=== PATIENT | male | born 1990 | race Caucasian/White ===

== ENCOUNTER 2020-04-03 20:49 | Emergency (ER) | payer BC, OTHER ==
--- NOTE | 2020-04-03 21:50 | EDM.PDOC ---
ED HPI GENERAL MEDICAL PROBLEM - General Chief Complaint: Respiratory Problem Stated Complaint: [facility] Time Seen by Provider: 04/03/20 21:10 Source of Information: Reports: Patient History Limitations: Reports: No Limitations - History of Present Illness INITIAL COMMENTS - FREE TEXT/NARRATIVE: This is a 29-year-old male. He is been home for the last 10 days being COVID positive. He has been having cough and shortness of breath and diarrhea. He denies any significant sore throat no significant congestion. No nausea or vomiting. He has been having lots of fatigue as well. Due to his shortness of breath he comes to the ER. He states as long as he is lying down he is not short of breath but soon as he tries to move around he starts coughing and has paroxysms of coughing. This has concerned him and that is why he is here. He has not really been running any fever that he is noted. The patient is not drinking very many fluids as well and so he appears to be dehydrated. He is coughing up phlegm here in the ER. - Related Data Allergies Allergy/AdvReac Type Severity Reaction Status Date / Time No Known Allergies Allergy Verified 04/03/20 20:57 Home Meds: Home Meds guaiFENesin/Pseudoephedrine [Mucinex D ER 600-60 MG] 1 tab PO DAILY 04/03/20 [History] Codeine/guaiFENesin [Robitussin AC] 10 ml PO Q6H PRN #236 liquid 04/04/20 [Rx] Past Medical History - Infectious Disease History Infectious Disease History: Reports: Novel Coronavirus - Past Surgical History GI Surgical History: Reports: Hernia, Abdominal Social & Family History - Caffeine Use Caffeine Use: Reports: Coffee, Energy Drinks, Soda, Tea ED ROS GENERAL - Review of Systems Review Of Systems: See Below Constitutional: Reports: Fatigue. Denies: Fever, Chills HEENT: Denies: Sinus Problem, Throat Pain Respiratory: Reports: Shortness of Breath, Cough, Sputum Cardiovascular: Reports: No Symptoms Endocrine: Reports: Fatigue GI/Abdominal: Reports: Diarrhea. Denies: Abdominal Pain, Nausea, Vomiting : Reports: No Symptoms Musculoskeletal: Reports: No Symptoms Skin: Reports: No Symptoms Neurological: Reports: No Symptoms Psychiatric: Reports: No Symptoms Hematologic/Lymphatic: Reports: No Symptoms ED EXAM, GENERAL - Physical Exam Exam: See Below Exam Limited By: No Limitations General Appearance: Alert, WD/WN, No Apparent Distress, Other (He is in no distress when he is lying down, when he sits up he starts coughing and cannot seem to stop coughing) Eye Exam: Bilateral Eye: Normal Inspection Ears: Normal External Exam Nose: Normal Inspection Throat/Mouth: Normal Inspection, Normal Lips, Normal Voice, No Airway Compromise Head: Normocephalic Neck: Supple Respiratory/Chest: No Respiratory Distress, Other (Mild decreased breath sounds in the right base but no wheezing or crackles noted) Cardiovascular: Regular Rate, Rhythm, No Murmur, Tachycardia GI/Abdominal: Soft, Non-Tender Back Exam: Full Range of Motion Extremities: Normal Inspection, Normal Range of Motion Neurological: Alert, Oriented Psychiatric: Normal Affect, Normal Mood Skin Exam: Warm, Dry Course - Vital Signs Last Recorded V/S: Last Vital Signs Temp 97.3 F 04/03/20 20:52 Pulse 140 H 04/03/20 20:52 Resp 31 H 04/03/20 20:52 BP 129/84 04/03/20 20:52 Pulse Ox 93 L 04/03/20 20:52 - Orders/Labs/Meds Orders: Active Orders 24 hr Category Date Time Status Lactated Ringers [Ringers, Lactated] 1,000 ml Med 04/03/20 22:00 Active IV ASDIRECTED Medication Orders Lactated Ringer's (Ringers, Lactated) 1,000 mls @ 1,000 mls/hr IV ASDIRECTED IVETH Last Admin: 04/03/20 22:14 Dose: 1,000 mls/hr Documented by: RUBY Labs: Laboratory Tests 04/03/20 04/03/20 04/03/20 Range/Units 22:10 22:10 22:10 WBC 8.39 (4.23-9.07) K/mm3 RBC 5.14 (4.63-6.08) M/mm3 Hgb 14.3 (13.7-17.5) gm/dl Hct 42.2 (40.1-51.0) % MCV 82.1 (79.0-92.2) fl MCH 27.8 (25.7-32.2) pg MCHC 33.9 (32.2-35.5) g/dl RDW Std Deviation 40.6 (35.1-43.9) fL Plt Count 293 (163-337) K/mm3 MPV 8.8 L (9.4-12.3) fl Neut % (Auto) 83.3 H (34.0-67.9) % Lymph % (Auto) 12.0 L (21.8-53.1) % Canadian % (Auto) 4.4 L (5.3-12.2) % Eos % (Auto) 0 L (0.8-7.0) Baso % (Auto) 0.2 (0.1-1.2) % Neut # (Auto) 6.98 H (1.78-5.38) K/mm3 Lymph # (Auto) 1.01 L (1.32-3.57) K/mm3 Canadian # (Auto) 0.37 (0.30-0.82) K/mm3 Eos # (Auto) 0.00 L (0.04-0.54) K/mm3 Baso # (Auto) 0.02 (0.01-0.08) K/mm3 Manual Slide Review Normal smear D-Dimer, Quantitative 0.41 (0.19-0.50) mg/L Puncture Site ABG pH (7.35-7.45) ABG pCO2 (35.0-45.0) mmHg ABG pO2 (80.0-100.0) mmHg ABG HCO3 (22.0-26.0) meq/L ABG O2 Saturation (96.0-97.0) % ABG Base Excess (-2-2.0) Shady Test A-a Gradient mmHg O2 Delivery Device FiO2 (21.00-100.00) % Sodium 134 L (136-145) mEq/L Potassium 3.4 L (3.5-5.1) mEq/L Chloride 98 (98-107) mEq/L Carbon Dioxide 21 (21-32) mEq/L Anion Gap 18.4 H (5-15) BUN 18 (7-18) mg/dL Creatinine 1.2 (0.7-1.3) mg/dL Est Cr Clr Drug Dosing 95.00 mL/min Estimated GFR (MDRD) > 60 (>60) mL/min BUN/Creatinine Ratio 15.0 (14-18) Glucose 116 H (74-106) mg/dL Calcium 8.4 L (8.5-10.1) mg/dL Ferritin (26-388) ng/ml Total Bilirubin 0.6 (0.2-1.0) mg/dL AST 50 H (15-37) U/L ALT 49 (16-63) U/L Alkaline Phosphatase 49 (46-116) U/L Lactate Dehydrogenase 460 H (85-227) U/L Creatine Kinase 465 H (39-308) U/L C-Reactive Protein 18.0 H* (<1.0) mg/dL Total Protein 7.7 (6.4-8.2) g/dl Albumin 2.9 L (3.4-5.0) g/dl Globulin 4.8 gm/dL Albumin/Globulin Ratio 0.6 L (1-2) 04/03/20 04/03/20 Range/Units 22:10 22:35 WBC (4.23-9.07) K/mm3 RBC (4.63-6.08) M/mm3 Hgb (13.7-17.5) gm/dl Hct (40.1-51.0) % MCV (79.0-92.2) fl MCH (25.7-32.2) pg MCHC (32.2-35.5) g/dl RDW Std Deviation (35.1-43.9) fL Plt Count (163-337) K/mm3 MPV (9.4-12.3) fl Neut % (Auto) (34.0-67.9) % Lymph % (Auto) (21.8-53.1) % Canadian % (Auto) (5.3-12.2) % Eos % (Auto) (0.8-7.0) Baso % (Auto) (0.1-1.2) % Neut # (Auto) (1.78-5.38) K/mm3 Lymph # (Auto) (1.32-3.57) K/mm3 Canadian # (Auto) (0.30-0.82) K/mm3 Eos # (Auto) (0.04-0.54) K/mm3 Baso # (Auto) (0.01-0.08) K/mm3 Manual Slide Review D-Dimer, Quantitative (0.19-0.50) mg/L Puncture Site Rt radial ABG pH 7.44 (7.35-7.45) ABG pCO2 26.1 L (35.0-45.0) mmHg ABG pO2 61.0 L (80.0-100.0) mmHg ABG HCO3 17.6 L (22.0-26.0) meq/L ABG O2 Saturation 91.4 L (96.0-97.0) % ABG Base Excess -4.6 L (-2-2.0) Shady Test Positive A-a Gradient 56 mmHg O2 Delivery Device Room air FiO2 21.00 (21.00-100.00) % Sodium (136-145) mEq/L Potassium (3.5-5.1) mEq/L Chloride (98-107) mEq/L Carbon Dioxide (21-32) mEq/L Anion Gap (5-15) BUN (7-18) mg/dL Creatinine (0.7-1.3) mg/dL Est Cr Clr Drug Dosing mL/min Estimated GFR (MDRD) (>60) mL/min BUN/Creatinine Ratio (14-18) Glucose (74-106) mg/dL Calcium (8.5-10.1) mg/dL Ferritin 1467 H (26-388) ng/ml Total Bilirubin (0.2-1.0) mg/dL AST (15-37) U/L ALT (16-63) U/L Alkaline Phosphatase (46-116) U/L Lactate Dehydrogenase (85-227) U/L Creatine Kinase (39-308) U/L C-Reactive Protein (<1.0) mg/dL Total Protein (6.4-8.2) g/dl Albumin (3.4-5.0) g/dl Globulin gm/dL Albumin/Globulin Ratio (1-2) Meds: Medications Generic Name Dose Route Start Last Admin Trade Name Freq PRN Reason Stop Dose Admin Lactated Ringer's 1,000 mls @ 1,000 mls/hr 04/03/20 22:00 04/03/20 22:14 Ringers, Lactated IV 1,000 mls/hr ASDIRECTED IVETH Administration Discontinued Medications Generic Name Dose Route Start Last Admin Trade Name Freq PRN Reason Stop Dose Admin Guaifenesin/Codeine Phosphate 10 ml 04/04/20 04:04 Robitussin Ac PO 04/04/20 04:05 ONETIME ONE Lactated Ringer's 1,000 mls @ 999 mls/hr 04/04/20 00:29 04/04/20 00:35 Ringers, Lactated IV 04/04/20 01:29 999 mls/hr .BOLUS ONE Administration - Re-Assessments/Exams Free Text/Narrative Re-Assessment/Exam: 04/04/20 04:15 The patient has been comfortable here in the ER as long as he stays still. When he tries to move around he starts to cough and he will desats slightly but once he lays down and his sats come back up again they have been running 90 and 91. I explained to the patient that I am hoping that the cough syrup will ease his coughing and he will begin to get better. However I explained the COVID can always get worse and if it does not seem to help he needs to return to the ER for reevaluation. Especially if he has shortness of breath or uncontrolled coughing. Departure - Departure Time of Disposition: 04:16 Disposition: Home, Self-Care 01 Condition: Fair Clinical Impression: Lab test positive for detection of COVID-19 virus, Shortness of breath, Paroxysmal cough - Discharge Information *PRESCRIPTION DRUG MONITORING PROGRAM REVIEWED*: Not Applicable *COPY OF PRESCRIPTION DRUG MONITORING REPORT IN PATIENT ROCHELLE: Not Applicable Prescriptions: Codeine/guaiFENesin [Robitussin AC] 10 ml PO Q6H PRN #236 liquid PRN Reason: Cough Instructions: COVID-19 Frequently Asked Questions, Cough, Adult, [id number] Referrals: PCP,None [Primary Care Provider] - Forms: ED Department Discharge Additional Instructions: Rest and sleep is much as possible, before you get up to move around take a dose of the cough syrup and do not push yourself or stress yourself, lots of water and avoid soda and caffeine, continue to rest and sleep is much as possible, COVID can always get worse so if you find that the medicine is not working or the shortness of breath is getting worse you need to return to the ER for reevaluation Sepsis Event Note (ED) - Evaluation Sepsis Screening Result: No Definite Risk - Focused Exam Vital Signs: Vital Signs Temp Pulse Resp BP Pulse Ox 04/03/20 20:52 97.3 F 140 H 31 H 129/84 93 L - My Orders Last 24 Hours: My Active Orders 04/03/20 22:00 Lactated Ringers [Ringers, Lactated] 1,000 ml IV ASDIRECTED - Assessment/Plan Last 24 Hours: My Active Orders 04/03/20 22:00 Lactated Ringers [Ringers, Lactated] 1,000 ml IV ASDIRECTED
[2020-04-03] MEDS ORDERED: Lactated Ringers 1,000 ML IV SCH (22:00)
[2020-04-04] MEDS ORDERED: Lactated Ringers 1,000 ML IV ONE (00:29)
[2020-04-04] MEDS ORDERED: Codeine/guaiFENesin 10-100 MG/5 ML Syrup 5 ML Cup PO ONE (04:04)
[2020-04-04] MEDS ORDERED: Albuterol 6.7 GM Inhaler INH ONE (05:19)
== END 2020-04-04 05:40 | disposition home or self-care (01) ==
LOC: JD.ED 20:49
DX: U07.1 COVID-19 (principal); R00.0 Tachycardia, unspecified
CPT/HCPCS: 36415; 36600; 80053; 82550; 82728; 82803; 83615; 85025; 85379; 86140; 96360; 96361; 99285; A9270; J7120; 99283

== ENCOUNTER 2021-08-15 11:40 | Emergency (ER) | payer BC ==
[2021-08-15] MEDS ORDERED: HYDROmorphone 0.5 MG/0.5 ML Syringe IM ONE (12:14)
== END 2021-08-15 12:35 | disposition home or self-care (01) ==
LOC: JD.ED 11:40
DX: M10.9 Gout, unspecified (principal); Z86.16 Personal history of COVID-19
CPT/HCPCS: 99283; 99284